=== PATIENT | female | born 1930 | race Caucasian/White ===

== ENCOUNTER 2017-02-14 16:26 | Emergency (ER) | payer OTHER, MEDICARE ==
[2017-02-14 16:42] VITALS: RESP 18; TEMP 98
--- NOTE | 2017-02-14 16:46 | UCPHY ---
H & P Patient Type: Established Chief Complaint Nursing Narrative: c/o Skin tears/bruising and blisters from recent falls on Rt elbow, Lt lower leg Time Seen by Provider: 02/14/17 16:37 HPI/ROS: CHIEF COMPLAINT: Skin tear HISTORY OF PRESENT ILLNESS: Patient is an 86-year-old female tripped and fell today. She has a contusion to her cleary and a skin tear/laceration to right elbow. She has normal range of motion. She denies head neck or back injury. She denies loss consciousness. She denies chest pain or shortness of breath. REVIEW OF SYSTEMS: Constitutional: denies: chills, fever, recent illness, recent injury EENTM: denies: blurred vision, double vision, nose congestion Respiratory: denies: cough, shortness of breath Cardiac: denies: chest pain, irregular heart rate, lightheadedness, palpitations Gastrointestinal/Abdominal: denies: abdominal pain, diarrhea, nausea, vomiting, blood streaked stools Genitourinary: denies: dysuria, frequency, hematuria, pain Musculoskeletal: denies: joint pain, muscle pain Skin: See HPI Neurological: denies: headache, numbness, paresthesia, tingling, dizziness, weakness Hematologic/Lymphatic: denies: blood clots, easy bleeding, easy bruising Immunologic/allergic: denies: HIV/AIDS, transplant EXAM: GENERAL: Well-appearing, well-nourished and in no acute distress. HEAD: Atraumatic, normocephalic. EYES: Pupils equal round and reactive to light, extraocular movements intact, sclera anicteric, conjunctiva are normal. ENT: TMs normal, nares patent, oropharynx clear without exudates. Moist mucous membranes. NECK: Normal range of motion, supple without lymphadenopathy or JVD. LUNGS: Breath sounds clear to auscultation bilaterally and equal. No wheezes rales or rhonchi. HEART: Regular rate and rhythm without murmurs, rubs or gallops. ABDOMEN: Soft, nontender, normoactive bowel sounds. No guarding, no rebound. No masses appreciated. BACK: No CVA tenderness, no spinal tenderness, step-offs or deformities EXTREMITIES: Normal range of motion, no pitting or edema. No clubbing or cyanosis. NEUROLOGICAL: Cranial nerves II through XII grossly intact. Normal speech, normal gait. 5/5 strength, normal movement in all extremities, normal sensation PSYCH: Normal mood, normal affect. SKIN: See diagram Source: Patient Exam Limitations: No limitations - Personal History Current Tetanus Diphtheria and Acellular Pertussis (TDAP): Yes Tetanus Vaccine Date: 2010 - Medical/Surgical History Hx Asthma: No Hx Chronic Respiratory Disease: Yes Hx Diabetes: No Hx Cardiac Disease: No Hx Renal Disease: No Hx Cirrhosis: No Hx Alcoholism: No Hx HIV/AIDS: No Hx Splenectomy or Spleen Trauma: No Other PMH: colon cancer, colon resection, broncial disease, skin cancer - Family History Significant Family History: No pertinent family hx - Social History Smoking Status: Never smoked Alcohol Use: Sober Drug Use: None Constitutional: Initial Vital Signs Temperature (C) 36.6 C 02/14/17 16:39 Heart Rate 84 02/14/17 16:39 Respiratory Rate 18 02/14/17 16:39 Blood Pressure 190/85 H 02/14/17 16:39 O2 Sat (%) 94 02/14/17 16:39 O2 Delivery Mode Room Air Allergies/Adverse Reactions: codeine [Codeine] Allergy (Severe, Verified 07/20/14 21:42) Unknown epinephrine [Epinephrine] Allergy (Severe, Verified 07/20/14 21:42) CARDIAC ARREST iodine [Iodine] Allergy (Severe, Verified 07/20/14 21:42) Hives meperidine [Meperidine] Allergy (Severe, Verified 07/20/14 21:42) Hives Shellfish *RETIRED-07/04/12 [Shellfish] Allergy (Severe, Verified 07/20/14 21:42 ) Hives azithromycin Allergy (Verified 06/25/15 19:48) levofloxacin [From Levaquin] Allergy (Verified 06/25/15 19:48) Home Medications: Medication Instructions Recorded Losartan Potassium [Cozaar] 50 mg PO DAILY 01/16/12 TEMAZEPAM 15 mg PO HS 01/16/12 Budesonide 180 Mcg INH [Pulmicort 2 puffs IH BID 09/24/12 180Mcg Flexhaler (RX)] Calcium Citrate [Citracal (OTC)] 600 mg PO DAILY 09/24/12 Cholecalciferol Vit D3 [Vitamin D3 1,000 units PO DAILY 09/24/12 1000 units (OTC)] Spironolactone [Aldactone 25 MG 12.5 mg PO DAILY 09/24/12 (RX)] Vitamin B Complex [Vitamin B 1 each PO DAILY 09/24/12 Complex (OTC)] Proair Hfa Icu (RX) 06/25/15 ED Images - Extremities Legs Front/Back: 1 - Contusion/blood blister, nontender, soft, not tense 2 - old bruises patient states her baseline Full Arm Back Right: 1 - Skin tear/laceration. Patient has a 3-4 cm laceration that is extended by about 3 cm of skin tear. No visible joint, tendon or vascular involvement. Normal pulses and sensation distally. Normal range of motion. Medical Decision Making - Diagnostics Imaging: Discussed imaging studies w/ call taker Radiologist Procedures: Procedure: Laceration repair. Verbal consent was obtained from the patient. The 4 cm right elbow laceration was anesthetized with 0.5% bupivacaine with epinephrine locally infiltrated. The wound was irrigated copiously according to protocol, draped and explored to its base. It was approximately 1/2 cm deep. There were no deep structures involved. No tendon, nerve, or vascular injury was identified when explored through full range of motion. No foreign body was identified. The wound was repaired with 4.0 Prolene, 8 sutures, interrupted with 1 vertical mattress. The wound repair was simple without wound margin revisement or multiple flap alignment. the sutures reinforced with Steri-Strips. The procedure was performed by myself. A dressing was then placed with sterile gauze. ED Course/Re-evaluation: Patient tolerated the procedure well. She declines further workup or testing at this time. We discussed suture care and removal. Differential Diagnosis: Partial list of the Differential diagnosis considered include but were not limited to; laceration, skin tear, blister, contusion and although unlikely based on the history and physical exam, I also considered fracture, dislocation. I discussed these differential diagnoses and the plan with the patient as well as the usual and expected course. The patient understands that the diagnosis is provisional and that in medicine we are not always correct and that further workup is often warranted. Usual and customary warnings were given. All of the patient's questions were answered. The patient was instructed to return to the emergency department should the symptoms at all worsen or return, otherwise to followup with the physician as we discussed. Departure - Departure Disposition: Home, Routine, Self-Care Clinical Impression: Skin tear, Laceration Condition: Fair Instructions: Care For Your Stitches (ED), Laceration (ED), Skin Tear (ED) Additional Instructions: Return in 10 days for suture removal Referrals: Dajuan Mendoza MD [Primary Care Provider] - As per Instructions - PQRS PQRS Measurement: 134: Depression screening and followup, PRIME MD-PHQ2 (12 years and older) Over the last 2 weeks, how often have you been bothered by any of the following problems? 1. Feeling down, depressed, or hopeless? 2. Little interest or pleasure in doing things? Patient answered no to both 1 and 2 130: Documentation of medications. Reviewed all patient medications, doses, route and frequency. 226: Do you smoke? No. 47: 65 and older: Advanced care planning. Patient designates surrogate decision maker as spouse . Patient has advanced directive. 51: 18 years old and older with diagnosis of COPD, spirometry performance. Spirometry not performed; equipment not available. 52: 18 years old and older with COPD and symptoms of COPD or FEV1<60% predicted prescribed a B Agonist. Not applicable
[2017-02-14 17:59] VITALS: BP 144/74; PULSE 71; O2SAT 96
== END 2017-02-14 17:55 | disposition home or self-care (01) ==
LOC: CED 16:26
PROC: 0HQDXZZ Repair Right Lower Arm Skin, External Approach (ICD-10-PCS; principal; 2017-02-14)
DX: S51.011A Laceration without foreign body of right elbow, initial encounter (principal); W19.XXXA Unspecified fall, initial encounter
CPT/HCPCS: 12002; G0463; 99213-PO

== ENCOUNTER → 2017-05-31 | Outpatient (CLI) | payer OTHER, MEDICARE | LOC: CIMAGING 10:48 | PROVIDERS: ATTEND Physician Assistant | DX: R05 Cough (principal) | CPT/HCPCS: 71020-PO ==

== ENCOUNTER 2017-08-23 09:58 | Emergency (ER) | payer OTHER, MEDICARE ==
[2017-08-23 10:12] VITALS: TEMP 97.5
[2017-08-23] MEDS ORDERED: NS 500 ML IV ONE (10:43)
--- NOTE | 2017-08-23 10:43 | EDPHY ---
H & P Stated Complaint: since Wed bowel incontinece and left sided abd pain. Decreased appetite Time Seen by Provider: 08/23/17 10:01 HPI/ROS: Chief Complaint: Abdominal pain, loose stools HPI: 87-year-old woman history of chronic loose stools did having worsening left-sided abdominal pain and decreased appetite since last Wednesday. She has been having waxing waning watery stools for months. It was improved when she started taking yogurt with granola but that caused rest left-sided abdominal pain so she stopped 3 weeks ago. She has been approved having about 2 loose to watery stools a day. He has history having some incontinence of stool. She has seen a nurse practitioner for this. She also has a history of a bladder prolapse and scheduled for consultation for a bladder sling in September. For the last few days she has had decreased appetite and left-sided abdominal pain. She is worried about eating that it might cause as some loose stools. Denies any nausea or vomiting. No constipation. No fevers or chills. No chest pain or shortness of breath. No urinary urgency or frequency. ROS: 10 point Review of Systems is negative except as noted in the HPI. Family History: non-contributory Physical Exam: Gen: Awake, Alert, No Distress HEENT: Nose: no rhinorrhea Eyes: PERRLA, EOMI Mouth: Moist mucosa Neck: Supple, no JVD Chest: nontender, lungs clear to auscultation Heart: S1, S2 normal, no murmur Abd: Soft, no tenderness, no guarding Back: no CVA tenderness, no midline tenderness Ext: no edema, non-tender Skin: no rash Neuro: CN II-XII intact, Sensation grossly intact, Strength 5/5 in bilateral upper and lower extremities - Personal History Current Tetanus Diphtheria and Acellular Pertussis (TDAP): Yes Tetanus Vaccine Date: 2010 - Medical/Surgical History Hx Asthma: No Hx Chronic Respiratory Disease: Yes Hx Diabetes: No Hx Cardiac Disease: No Hx Renal Disease: No Hx Cirrhosis: No Hx Alcoholism: No Hx HIV/AIDS: No Hx Splenectomy or Spleen Trauma: No Other PMH: colon cancer, colon resection 2009, broncial disease, skin cancer - Social History Smoking Status: Never smoked Constitutional: Initial Vital Signs Temperature (C) 36.4 C 08/23/17 10:03 Heart Rate 69 08/23/17 10:03 Respiratory Rate 18 08/23/17 10:03 Blood Pressure 140/71 H 08/23/17 10:03 O2 Sat (%) 95 08/23/17 10:03 O2 Delivery Mode Room Air Allergies/Adverse Reactions: codeine [Codeine] Allergy (Severe, Verified 08/23/17 10:13) Unknown epinephrine [Epinephrine] Allergy (Severe, Verified 08/23/17 10:13) CARDIAC ARREST iodine [Iodine] Allergy (Severe, Verified 08/23/17 10:13) Hives meperidine [Meperidine] Allergy (Severe, Verified 08/23/17 10:13) Hives Shellfish *RETIRED-07/04/12 [Shellfish] Allergy (Severe, Verified 08/23/17 10:13 ) Hives azithromycin Allergy (Verified 08/23/17 10:13) levofloxacin [From Levaquin] Allergy (Verified 08/23/17 10:13) Home Medications: Medication Instructions Recorded Losartan Potassium [Cozaar] 50 mg PO DAILY 01/16/12 Budesonide 180 Mcg INH [Pulmicort 2 puffs IH BID 09/24/12 180Mcg Flexhaler (RX)] Calcium Citrate [Citracal (OTC)] 600 mg PO DAILY 09/24/12 Cholecalciferol Vit D3 [Vitamin D3 1,000 units PO DAILY 09/24/12 1000 units (OTC)] Spironolactone [Aldactone 25 MG 12.5 mg PO DAILY 09/24/12 (RX)] Vitamin B Complex [Vitamin B 1 each PO DAILY 09/24/12 Complex (OTC)] Proair Hfa Icu (RX) 06/25/15 Medical Decision Making ED Course/Re-evaluation: 79-year-old woman with chronic diarrhea is being brought in by family for fevers dehydration. She is drinking fluids. She is urinating. She does have a history of bladder prolapse is scheduled for bladder sling consultation. She has had some urinary frequency. Regarding her chronic loose stools she is having about 2 a day. She is having occasional incontinence of stool. She is completely neurologically intact. Abdomen is benign. Her laboratory evaluations are unremarkable. Do not see any indication for imaging at this time. She also has a history of contrast allergy and has required premedication in the past. She has a very benign exam at this time. She did have improvement in the firmness of her stool several weeks ago when she was changing her diet. However she did have some discomfort with this which has since resolved. I do not see an indication for imaging at this time. She is having a bowel movement only twice a day. She is clinically hydrated. Will discharge with follow-up with primary care physician and referral information for Gastroenterology. - Data Points Laboratory Results: Laboratory Results 08/23/17 11:05 08/23/17 11:05 08/23/17 08/23/17 11:05 11:05 WBC 8.91 10^3/uL 10^3/uL (3.80-9.50) RBC 4.34 10^6/uL 10^6/uL (4.18-5.33) Hgb 12.1 g/dL L g/dL (12.6-16.3) Hct 35.7 % L % (38.0-47.0) MCV 82.3 fL fL (81.5-99.8) MCH 27.9 pg pg (27.9-34.1) MCHC 33.9 g/dL g/dL (32.4-36.7) RDW 14.0 % % (11.5-15.2) Plt Count 302 10^3/uL 10^3/uL (150-400) MPV 8.1 fL L fL (8.7-11.7) Neut % (Auto) 73.4 % % (39.3-74.2) Lymph % (Auto) 15.0 % % (15.0-45.0) [place] % (Auto) 7.4 % % (4.5-13.0) Eos % (Auto) 2.9 % % (0.6-7.6) Baso % (Auto) 0.7 % % (0.3-1.7) Nucleat RBC Rel Count 0.0 % % (0.0-0.2) Absolute Neuts (auto) 6.54 10^3/uL H 10^3/uL (1.70-6.50) Absolute Lymphs (auto) 1.34 10^3/uL 10^3/uL (1.00-3.00) Absolute Monos (auto) 0.66 10^3/uL 10^3/uL (0.30-0.80) Absolute Eos (auto) 0.26 10^3/uL 10^3/uL (0.03-0.40) Absolute Basos (auto) 0.06 10^3/uL 10^3/uL (0.02-0.10) Absolute Nucleated RBC 0.00 10^3/uL 10^3/uL (0-0.01) Immature Gran % 0.6 % % (0.0-1.1) Immature Gran # 0.05 10^3/uL 10^3/uL (0.00-0.10) Sodium 130 mEq/L L mEq/L (134-144) Potassium 4.5 mEq/L mEq/L (3.5-5.2) Chloride 98 mEq/L mEq/L (97-110) Carbon Dioxide 21 mEq/l L mEq/l (22-31) Anion Gap 11 mEq/L mEq/L (8-16) BUN 16 mg/dL mg/dL (7-23) Creatinine 1.0 mg/dL mg/dL (0.6-1.0) Estimated GFR 52 Glucose 111 mg/dL H mg/dL (70-100) Calcium 9.8 mg/dL mg/dL (8.5-10.4) Departure - Departure Disposition: Home, Routine, Self-Care Clinical Impression: Frequent loose stools Condition: Good Instructions: Dehydration (ED), Chronic Diarrhea (ED) Additional Instructions: Follow up with her primary care physician in 3-4 days for re-evaluation. Follow up with Gastroenterology in 3-4 days for further evaluation. Return to the emergency department for increasing diarrhea, weakness, fainting, shortness of breath, nausea, vomiting, or any other concerns. Referrals: Dajuan Mendoza MD [Primary Care Provider] - As per Instructions Abad Mcduffie MD [Medical Doctor] - As per Instructions
[2017-08-23 11:08] LABS: PLATELET COUNT 302 10^3/uL (150-400)
[2017-08-23 12:52] VITALS: BP 158/85; PULSE 75; RESP 16; O2SAT 97
== END 2017-08-23 12:50 | disposition home or self-care (01) ==
LOC: CED 09:58
PROC: 3E0337Z Introduction of Electrolytic and Water Balance Substance into Peripheral Vein, Percutaneous Approach (ICD-10-PCS; principal; 2017-08-23)
DX: R19.7 Diarrhea, unspecified (principal); E86.9 Volume depletion, unspecified; Z85.828 Personal history of other malignant neoplasm of skin
CPT/HCPCS: 80048-PO; 81003-PO; 81015-PO; 85025-PO

== ENCOUNTER → 2018-03-17 | Outpatient (CLI) | payer OTHER, MEDICARE | LOC: FIMAGING 15:47 | PROVIDERS: ATTEND Physician Assistant | DX: R41.0 Disorientation, unspecified (principal); S09.90XA Unspecified injury of head, initial encounter ==